=== PATIENT | female | born 1980 | race Caucasian/White ===

== ENCOUNTER 2018-06-23 21:26 | Emergency (ER) | payer OTHER ==
[2018-06-23 21:26] VITALS: PULSE 76; BMI 30.2
[2018-06-23 21:57] VITALS: RESP 18; TEMP 97.7
[2018-06-23] MEDS ORDERED: Bacitracin 500 Units/gm Oint Foilpak UD ONE (22:59)
--- NOTE | 2018-06-23 23:15 | ED PDOC ---
Arrival/HPI - General Chief Complaint: Finger,Hand,&Wrist Time Seen by Provider: 06/23/18 22:00 Historian: Patient - History of Present Illness Narrative History of Present Illness (Text): 38 y/o female presents for evaluation of right 3rd digit pain s/p injury 2 days ago. Pt hit her artificial nail against a wall and lifted it, causing it to become loose. Currently c/o pain to the area. Has not taken any medication for pain. Denies redness, swelling, drainage, bleeding, numbness, paresthesias, or any other associated symptoms. Past Medical History - Provider Review Nursing Documentation Reviewed: Yes - Infectious Disease Hx of Infectious Diseases: None - Tetanus Immunization Tetanus Immunization: Unknown - Cardiac Hx Cardiac Disorders: Yes Hx Cardiac Arrhythmia: Yes - Pulmonary Hx Respiratory Disorders: No - Neurological Hx Neurological Disorder: No - HEENT Hx HEENT Disorder: Yes (CHRONIC TONSILITIS) - Renal Hx Renal Disorder: No - Endocrine/Metabolic Hx Endocrine Disorders: No - Hematological/Oncological Hx Blood Disorders: No - Integumentary Hx Dermatological Disorder: No - Musculoskeletal/Rheumatological Hx Musculoskeletal Disorders: No - Gastrointestinal Hx Gastrointestinal Disorders: No - Genitourinary/Gynecological Hx Genitourinary Disorders: No - Psychiatric Hx Psychophysiologic Disorder: No Hx Depression: No Hx Emotional Abuse: No Hx Physical Abuse: No Hx Substance Use: No - Past Surgical History Past Surgical History: No Previous - Surgical History Hx Cardiac Catheterization: Yes Hx Section: Yes - Anesthesia Hx Anesthesia: Yes Hx Anesthesia Reactions: No Hx Malignant Hyperthermia: No - Suicidal Assessment Feels Threatened In Home Enviroment: No Family/Social History - Physician Review Nursing Documentation Reviewed: Yes Family/Social History: No Known Family HX Smoking Status: Never Smoked Hx Alcohol Use: No Hx Substance Use: No Hx Substance Use Treatment: No Allergies/Home Meds Allergies/Adverse Reactions: Allergies No Known Allergies Allergy (Verified 06/23/18 22:04) Home Medications: Home Meds Medication Instructions Recorded Confirmed Aspirin [Aspirin Chewable] 1 tab PO DAILY 05/22/16 05/23/16 Digoxin [Lanoxin] 1 tab PO DAILY 05/22/16 05/23/16 Enalapril Maleate [Vasotec] 1 tab PO DAILY 05/22/16 05/23/16 Review of Systems - Physician Review All systems were reviewed & negative as marked: Yes - Review of Systems Constitutional: Normal. absent: Fevers Eyes: Normal. absent: Vision Changes ENT: Normal Respiratory: Normal. absent: SOB Cardiovascular: Normal. absent: Chest Pain, Palpitations Gastrointestinal: Normal. absent: Abdominal Pain, Nausea, Vomiting Genitourinary Female: Normal. absent: Dysuria, Frequency Musculoskeletal: Other (right 3rd digit nail pain) Skin: Normal Neurological: Normal Endocrine: Normal Hemo/Lymphatic: Normal Psychiatric: Normal Physical Exam Vital Signs Reviewed: Yes Vital Signs Temp Pulse Resp BP Pulse Ox 06/23/18 22:01 97.7 F 77 18 130/84 98 06/23/18 21:57 97.7 F 77 18 130/84 99 Temperature: Afebrile Blood Pressure: Normal Pulse: Regular Respiratory Rate: Normal Appearance: Positive for: Well-Appearing, Non-Toxic, Comfortable Pain Distress: None Mental Status: Positive for: Alert and Oriented X 3 - Systems Exam Head: Present: Atraumatic, Normocephalic Pupils: Present: PERRL Extroacular Muscles: Present: EOMI Conjunctiva: Present: Normal Mouth: Present: Moist Mucous Membranes Neck: Present: Normal Range of Motion Respiratory/Chest: Present: Clear to Auscultation, Good Air Exchange. No: Respiratory Distress, Accessory Muscle Use Cardiovascular: Present: Regular Rate and Rhythm, Normal S1, S2, Peripheal Pulses Present. No: Murmurs Upper Extremity: Present: Normal Inspection, Normal ROM, NORMAL PULSES, Tenderness (right 3rd digit nail), Neurovascularly Intact, Capillary Refill < 2s, Other (right 3rd digit nail loose; no active bleeding; no laceration). No: Cyanosis, Edema, Swelling, Erythema, Temperature Abnormalties Neurological: Present: GCS=15, CN II-XII Intact, Speech Normal, Motor Func Grossly Intact, Normal Sensory Function, Gait Normal Skin: Present: Warm, Dry, Normal Color. No: Rashes Psychiatric: Present: Alert, Oriented x 3, Normal Insight, Normal Concentration Medical Decision Making ED Course and Treatment: Initial Plan: * Wrap nail to finger * Refer to hand specialist * Keflex No concern for fracture due to mechanism of injury. FROM, strength, and sensation to finger. No tenderness to finger. No xray indicated. Although advised not to do so, while in the ED, patient removed nail herself and threw nail in the trash. Soaked in betadine solution. No laceration of exposed nail bed, small amount of nail left at the base. No active bleeding. Dressed with sterile, dry dressing with bacitracin. Finger wrapped. Prescription for keflex given. Recommend followup with hand within 2 days. Case discussed with Dr. Maldonado, who agrees with plan of care and disposition. Diagnostic testing results and plan of care discussed with patient, and strict instructions given regarding prescriptions, importance of follow up, and signs to return to Emergency Department, to include worsening pain, signs of infection, or any other new/worsening symptoms. Patient verbalizes understanding of discussion. Patient A&Ox3, ambulating with steady gait, stable for discharge home. Disposition/Present on Arrival - Present on Arrival Any Indicators Present on Arrival: Yes History of DVT/PE: Yes History of Uncontrolled Diabetes: No Urinary Catheter: No History of Decub. Ulcer: No History Surgical Site Infection Following: None - Disposition Have Diagnosis and Disposition been Completed?: Yes Diagnosis: Injury of nail Disposition: HOME/ ROUTINE Disposition Time: 23:13 Patient Plan: Discharge Condition: IMPROVED Discharge Instructions (ExitCare): Wound Care (DC) Additional Instructions: Keep wound clean, dry, and covered Cut nail short as soon as possible Take antibiotics as prescribed Followup with PMD within 2 days Followup with hand doctor within 2 days Return to ER with any new/worsening symptoms Prescriptions: Cephalexin [Keflex] 500 mg PO QID 7 Days #28 capsule Referrals: Mathieu Fowler MD [Primary Care Provider] - Follow up with primary SidneyJuan Luis MD [Staff Provider] - Follow up with primary Forms: [facility] ([place]), WORK NOTE
[2018-06-24 00:39] VITALS: BP 128/76; PULSE 72; O2SAT 99
== END 2018-06-23 23:35 | disposition home or self-care (01) ==
LOC: ED 21:26
DX: S69.91XA Unspecified injury of right wrist, hand and finger(s), initial encounter (principal); W22.01XA Walked into wall, initial encounter